=== PATIENT | female | born 2000 | race Caucasian/White ===

== ENCOUNTER 2024-06-14 17:54 | Inpatient (IN) ==
[2024-06-14] MEDS ORDERED: LIDOCAINE 1% LOCAL 20 ML VIAL INFIL PRN (19:40)
[2024-06-14] MEDS ORDERED: CALCIUM CARBONATE 500 MG CHEWABLE TAB PO PRN (19:40)
[2024-06-14] MEDS: BETAMETH SOD PHOS/ACETATE IA 6 MG/ML IM STA (19:58)
[2024-06-14] MEDS: PENICILLIN GK 6 MU in SODIUM CHLORIDE 0.9% 250 ML IV STA (20:05)
[2024-06-14] MEDS: SODIUM CHLORIDE 0.9% 500 ML IV SCH (20:15)
--- NOTE | 2024-06-14 20:24 | History & Physical Report ---
Date of Service June 14, 2024 Assessment & Plan (1) 36 weeks gestation of : (2) Active labor: (3) IUGR (intrauterine growth restriction) affecting care of mother: (4) Gestational diabetes mellitus (GDM) affecting , antepartum: Plan admit, iv, labs. fhts categ 1. active labor. pcn for gbs unknown. betamethasone, already given. desires epidural. aware of possible need for pit augmentation and/or arom and accepts. consent signed and scanned into chart. History of Present Illness Chief Complaint: labor Primary Care Provider: PATRICIA Solis 23yo at 36+wks ega presents to LD with regular contractions getting closer and stronger. Patient was seen in office earlier today for routine visit. Since that time, contractions closer and stronger and came to LD. At first ctx were irregular and cx was 4cm/80% and post per nurse (was 3/80 in office today) but then became m ore regular and more painful and recheck by nurse was 5cm with ctx moreso like q2-3. No rom. No vb. This is same fob as last which was term . Prior to that was different fob and was c/s. She wants to today. PNC c/b 1. IUGR, last u/s efw 6%, testing normal 2. GDM non compliant with bsg checks. 3. MJ use daily and vaping 4. h/o c/s x 1, successful x 1 PNL rhpos, ri, gbs unknown (done today) OBH: c/s 38wks, 38wks GYNH: nl paps, no stds Allergies Allergy/AdvReac Type Severity Reaction Status Date / Time acetaminophen [From Tylenol] AdvReac Intermediate Vomiting Verified 06/14/24 10:20 trazodone AdvReac Intermediate OVERSEDATED Verified 06/14/24 10:20 Home Medications Medication Instructions Recorded Confirmed Type Medical Marijuana 1 dose inhalation DIRECTED PRN 12/19/23 06/14/24 History NEEDED PER PT folic acid 400 mcg tablet 0.4 mg PO DAILY 12/19/23 06/14/24 History pyridoxine (vitamin B6) 100 mg 0 mg PO DAILY 12/19/23 06/14/24 History tablet (Vitamin B-6) acetone (urine) test (Ketone Urine #50 ea 02/24/24 06/14/24 Rx Test strips) blood sugar diagnostic (OneTouch #150 ea 02/24/24 06/14/24 Rx Verio test strips) blood-glucose meter (OneTouch #1 ea 02/24/24 06/14/24 Rx Verio Reflect Meter) lancets 33 gauge (OneTouch Delica #150 ea 02/24/24 06/14/24 Rx Plus Lancet) magnesium 250 mg tablet 500 mg PO DAILY 04/09/24 06/14/24 History levothyroxine 75 mcg tablet 75 mcg PO DAILY #30 tabs 05/07/24 06/14/24 Rx iron sucrose 100 mg iron/5 mL 300 mg (15 mL) IV ONCE #15 mL 05/13/24 06/14/24 Rx intravenous solution (Venofer) pediatric multivit no.17-ferrous See Rx Instructions .Route .COMPLEX 05/19/24 06/14/24 History fumarate 15 mg iron chewable tablet Patient History Medical History (Updated 06/14/24 @ 20:24 by Yasmine Caldera MD, FACOG) Anemia Depression with anxiety Chronic pain Ovarian cyst Endometriosis Varicella vaccination Asthma Surgical History S/P cystoscopy S/P laparoscopy S/P section Family History Mother Thyroid disease Son Chiari malformation type I Denies family history of Ovarian cancer Breast cancer Colorectal cancer Social History Smoking Status: Current every day smoker Tobacco Type: E-cigarettes / Vaping Second Hand Exposure: Yes; Do You Dip or Chew Tobacco: No; Hx Alcohol Use: No Hx Substance Use: Yes Prescribed Medications: Marijuana Preferred Language: Albanian Communication Ability: Effective Retail Director Required: No Beliefs That Will Affect Care: None marital status: marital status details: Hollis Smith (20) [phone] Current Living Situation: Spouse and Family Current Living Situation Comment: lives with spouse, 2 sons, 3 cats-spouse changing litter current occupational status: unemployed current occupation: homemaker Other Information That Helps Us Care for You: No Feels Safe at Home: Yes Assistive Devices: None Review of Systems as per Subjective / HPI Physical Exam Constitutional: WD/WN, vitals as above Respiratory: normal respiratory effort, lungs clear to auscultation Cardiovascular: Rate/Rhythm: regular rate and regular rhythm Gastrointestinal (Abdomen): soft gravid nt efw 5# Musculoskeletal: no edema nontender calves Neurologic: grossly normal Psychiatric: A+Ox3, euthymic affect Genitourinary: Manual OB Exam: + cervical dilation 6 cm, + cervical effacement 70% and + station -2 OB Exam Monitor Tracing: + external FHT monitor used, + external uterine monitor used (q2-3.5), + category I and + normal FHT variab ility Results & Data Vital Signs (Past 12 Hours) Vital Signs Temp Pulse Resp BP 06/14/24 19:09 97.9 F 18 06/14/24 19:05 83 127/73 06/14/24 18:09 98.1 F 102 H 20 120/83 06/14/24 18:04 98.1 F 102 H 20 120/83 Coding Level of Care Code None Diagnoses 36 weeks gestation of Z3A.36 Active labor O60.00 IUGR (intrauterine growth restriction) affecting care of mother O36.5990 Gestational diabetes mellitus (GDM) affecting , antepartum O24.419
[2024-06-14] MEDS ORDERED: SODIUM CHLORIDE 0.9% PF INJ 10 ML VIAL EPI PRN (20:36)
[2024-06-14] MEDS ORDERED: NALBUPHINE HCL INJ 10 MG/ML AMP IV PRN (20:36)
[2024-06-14] MEDS ORDERED: LIDOCAINE 2% MPF LOCAL 5 ML VIAL EPI PRN (20:36)
[2024-06-14] MEDS ORDERED: BUPIVACAINE 0.25% PF 30 ML VIAL EPI PRN (20:36)
[2024-06-14] MEDS ORDERED: NALOXONE HCL 1 MG in SODIUM CHLORIDE 0.9% 1,000 ML IV PRN (20:36)
[2024-06-14] MEDS ORDERED: ONDANSETRON INJ 2 MG/ML 2 ML VIAL IV PRN (20:36)
[2024-06-14] MEDS ORDERED: ePHEDrine sulfate 50 MG/ML AMP IV PRN (20:36)
[2024-06-14] MEDS ORDERED: NALOXONE HCL 0.4 MG/1 ML VIAL/CARP IV PRN (20:36)
[2024-06-14] MEDS ORDERED: diphenhydrAMINE 50 MG/ML VIAL IV PRN (20:36)
[2024-06-14] MEDS ORDERED: ROPIVACAINE 0.5% PF 5 MG/ML 20 ML VIAL EPI PRN (20:36)
[2024-06-14] MEDS ORDERED: fentaNYL citrate PF 100 MCG/2 ML VIAL EPI PRN (20:36)
[2024-06-14 20:37] LABS: Hematocrit (blood only) 34.2 % (37.0-47.0); Hemoglobin 11.1 g/dl (12.0-16.0); Mean Corpuscular Hemoglobin 26.8 pg (25.0-34.0); Mean Corpuscular Hgb Conc 32.5 g/dL (32.0-36.0); Mean Corpuscular Volume 82.6 fL (80.0-100.0); Platelet Count 243 K/uL (130-400); RDW Coefficient of Variation 19.9 % (11.5-14.5); RDW Standard Deviation 58.8 fL (36.4-46.3); Red Blood Count 4.14 M/uL (4.20-5.40); White Blood Count 11.62 K/ul (4.8-10.8)
--- NOTE | 2024-06-14 20:40 | Anesthesiology Consultation ---
Date of Service June 14, 2024 Assessment & Plan (1) Encounter for pre-operative examination: Chart Review Chart Review: Patient NOT seen in Pre Admission Testing and Acceptable Risk for Labor Epidural Consults Requested none History Height/Weight Height: 5 ft 2 in Weight: 55.792 kg Allergies Allergy/AdvReac Type Severity Reaction Status Date / Time acetaminophen [From Tylenol] AdvReac Intermediate Vomiting Verified 06/14/24 10:20 trazodone AdvReac Intermediate OVERSEDATED Verified 06/14/24 10:20 Medications Home Medications Medication Instructions Recorded Confirmed Last Taken Medical Marijuana 1 dose inhalation DIRECTED PRN 12/19/23 06/14/24 06/13/24 NEEDED PER PT folic acid 400 mcg tablet 0.4 mg PO DAILY 12/19/23 06/14/24 06/13/24 pyridoxine (vitamin B6) 100 mg 0 mg PO DAILY 12/19/23 06/14/24 06/13/24 tablet (Vitamin B-6) acetone (urine) test (Ketone Urine #50 ea 02/24/24 06/14/24 Unknown Test strips) blood sugar diagnostic (OneTouch #150 ea 02/24/24 06/14/24 Unknown Verio test strips) blood-glucose meter (OneTouch #1 ea 02/24/24 06/14/24 Unknown Verio Reflect Meter) lancets 33 gauge (OneTouch Delica #150 ea 02/24/24 06/14/24 Unknown Plus Lancet) magnesium 250 mg tablet 500 mg PO DAILY 04/09/24 06/14/24 06/14/24 levothyroxine 75 mcg tablet 75 mcg PO DAILY #30 tabs 05/07/24 06/14/24 06/14/24 iron sucrose 100 mg iron/5 mL 300 mg (15 mL) IV ONCE #15 mL 05/13/24 06/14/24 Unknown intravenous solution (Venofer) pediatric multivit no.17-ferrous See Rx Instructions .Route .COMPLEX 05/19/24 06/14/24 06/13/24 fumarate 15 mg iron chewable tablet Active Medications Generic Name Dose Route Start Last Admin Trade Name Freq PRN Reason Stop Dose Admin Penicillin G Potassium 6 mu/ 262 mls @ 250 mls/hr 06/14/24 19:40 06/14/24 20:05 Sodium Chloride IV 06/14/24 20:42 250 mls/hr NOW STA Administration Sodium Chloride 500 mls @ 50 mls/hr 06/14/24 20:00 06/14/24 20:15 Nss IV 06/15/24 05:59 50 mls/hr .Q10H MARGARITA Administration Past Medical History Medical History (Updated 06/14/24 @ 20:40 by Roldan Robison MD) Encounter for pre-operative examination Anemia Depression with anxiety Chronic pain Ovarian cyst Endometriosis Varicella vaccination Asthma Exercise / Class Metabolic Activity II 4-5 Yardwork/Stairs/Walk up hill Past Family History Family History Mother Thyroid disease Son Chiari malformation type I Denies family history of Ovarian cancer Breast cancer Colorectal cancer Past Surgical History Surgical History S/P cystoscopy S/P laparoscopy S/P section Past Anesthesia History No Hx of Anesthesia Complications and No Family Hx of Anesthesia Complications History of PONV No Hx of PONV and No Hx of Motion Sickness Social History Smoking Status: Current every day smoker Do You Dip or Chew Tobacco: No Hx Alcohol Use: No Hx Substance Use: Yes substance use type: marijuana Physical Exam Vital Signs Last Vital Signs Temp 36.6 C 06/14/24 19:09 Pulse 83 06/14/24 19:05 Resp 18 06/14/24 19:09 BP 127/73 06/14/24 19:05 Testing Laboratory Results 06/14/24 20:16 06/14/24 20:23 POC Glucose 83
[2024-06-14] MEDS: BUPIVACAINE 0.25% PF 30 ML VIAL EPI STA (20:53)
[2024-06-14] MEDS: fentaNYL citrate PF 100 MCG/2 ML VIAL EPI STA (20:53)
[2024-06-14] MEDS: ePHEDrine sulfate 50 MG/ML AMP ONE (20:54)
[2024-06-14] MEDS: BUPIVACAINE 0.25% PF 30 ML VIAL ONE (20:54)
[2024-06-14] MEDS: SODIUM CHLORIDE 0.9% PF INJ 10 ML VIAL EPI STA (20:54)
[2024-06-14] MEDS: fentANYL 2 MCG/ML BUPIVacaine 0.125%-NSS 100ML BAG ONE (20:54)
[2024-06-14] MEDS: SODIUM CHLORIDE 0.9% PF INJ 10 ML VIAL ONE (20:54)
[2024-06-14] MEDS: fentaNYL citrate PF 100 MCG/2 ML VIAL ONE (20:54)
[2024-06-14] MEDS: fentANYL 2 MCG/ML BUPIVacaine 0.125%-NSS 100ML BAG EPI PRN (20:55)
[2024-06-14] MEDS: LIDOCAINE 2%/EPINEPHRINE 1:200,000 20 ML PF ONE (21:17)
[2024-06-14] MEDS: LIDOCAINE 2%/EPINEPHRINE 1:200,000 20 ML PF EPI STA (21:17)
[2024-06-14] MEDS: PENICILLIN GK 3 MU in DEXTROSE 5% 100 ML IV PRN (23:43)
--- NOTE | 2024-06-15 00:53 | Labor Progress Brief Note ---
Date of Service June 15, 2024 Subjective comfortable with epidural Assessment & Plan (1) 36 weeks gestation of : (2) Active labor: (3) IUGR (intrauterine growth restriction) affecting care of mother: (4) Gestational diabetes mellitus (GDM) affecting , antepartum: (5) Desires (vaginal after ) trial: Plan will see how arom helps progress. ctx pattern regular. fhts categ 1. expectant mgmt. pcn for gbs unknown. cont to monitor bsg. Admission and Anticipated Discharge Date Admission Date: June 14, 2024 Physical Exam Constitutional: WD/WN, vitals as above Genitourinary: Manual OB Exam: + cervical dilation 7 cm, + cervical effacement 50%, + station -2 and + amniotic fluid (arom) clear OB Exam Monitor Tracing: + external FHT monitor used, + external uterine monitor used, + category I and + normal FHT variability Results & Data Vital Signs (Past 12 Hours) Vital Signs Temp Pulse Resp BP Pulse Ox 06/15/24 00:48 112 H 97 06/15/24 00:43 94 H 97 06/15/24 00:42 93 H 93 06/15/24 00:41 93 H 99/60 L 06/15/24 00:38 87 98 06/15/24 00:35 106 H 94 06/15/24 00:33 87 95 06/15/24 00:29 91 H 94 06/15/24 00:28 93 H 94 06/15/24 00:26 88 98/57 L 06/15/24 00:25 18 06/15/24 00:25 98.8 F 18 06/15/24 00:24 94 H 94 06/15/24 00:23 90 94 06/15/24 00:18 94 06/15/24 00:18 86 06/15/24 00:18 86 94 06/15/24 00:13 89 92 06/15/24 00:12 92 H 93 06/15/24 00:11 86 102/58 L 06/15/24 00:08 101 H 94 06/15/24 00:07 87 94 06/15/24 00:03 90 95 06/15/24 00:02 90 93 06/14/24 23:58 93 H 94 06/14/24 23:56 96 H 100/59 L 93 06/14/24 23:53 94 H 97 06/14/24 23:48 89 97 06/14/24 23:43 92 H 97 06/14/24 23:41 93 H 105/55 L 06/14/24 23:38 91 H 97 06/14/24 23:33 89 97 06/14/24 23:29 18 06/14/24 23:29 18 06/14/24 23:28 93 H 98 06/14/24 23:26 87 111/68 90 06/14/24 23:23 92 H 100 06/14/24 23:18 97 06/14/24 23:18 85 06/14/24 23:18 92 H 93 06/14/24 23:13 77 93 06/14/24 23:11 93 06/14/24 23:11 87 06/14/24 23:11 96 H 120/80 06/14/24 23:08 90 91 06/14/24 23:03 97 H 92 06/14/24 23:00 76 94 06/14/24 22:58 84 94 06/14/24 22:56 83 118/74 06/14/24 22:54 82 94 06/14/24 22:53 83 95 06/14/24 22:49 87 94 06/14/24 22:48 79 95 06/14/24 22:43 84 97 06/14/24 22:42 88 112/72 06/14/24 22:39 93 H 92 06/14/24 22:38 95 H 99 06/14/24 22:33 94 H 100 06/14/24 22:28 93 H 96 06/14/24 22:27 88 111/75 06/14/24 22:23 93 H 99 06/14/24 22:18 97 H 99 06/14/24 22:14 113 H 93 06/14/24 22:13 110 H 96 06/14/24 22:11 96 H 122/78 06/14/24 22:08 116 H 100 06/14/24 22:05 99 H 92 06/14/24 22:03 117 H 95 06/14/24 21:59 81 92 06/14/24 21:58 80 93 06/14/24 21:55 95 H 133/84 06/14/24 21:53 88 92 06/14/24 21:52 81 91 06/14/24 21:48 80 100 06/14/24 21:45 84 91 06/14/24 21:43 101 H 100 06/14/24 21:38 94 H 97 06/14/24 21:33 84 98 06/14/24 21:30 18 06/14/24 21:30 18 06/14/24 21:28 90 99 06/14/24 21:25 18 06/14/24 21:25 18 06/14/24 21:24 87 113/75 06/14/24 21:23 90 99 06/14/24 21:22 88 114/70 06/14/24 21:21 85 111/68 06/14/24 21:20 18 06/14/24 21:20 18 06/14/24 21:18 87 124/76 97 06/14/24 21:17 93 H 118/75 06/14/24 21:15 97 H 18 123/76 06/14/24 21:13 99 06/14/24 21:13 90 06/14/24 21:13 92 H 119/82 06/14/24 21:11 91 H 125/78 06/14/24 21:10 18 06/14/24 21:10 18 06/14/24 21:09 89 127/71 06/14/24 21:08 88 98 06/14/24 21:03 95 H 98 06/14/24 20:58 92 H 97 06/14/24 20:53 113 H 100 06/14/24 20:48 97 H 100 06/14/24 19:09 97.9 F 18 06/14/24 19:05 83 127/73 06/14/24 18:09 98.1 F 102 H 20 120/83 06/14/24 18:04 98.1 F 102 H 20 120/83 Coding Level of Care Code None Diagnoses 36 weeks gestation of Z3A.36 Active labor O60.00 IUGR (intrauterine growth restriction) affecting care of mother O36.5990 Gestational diabetes mellitus (GDM) affecting , antepartum O24.419 Desires (vaginal after ) trial O34.219
[2024-06-15] MEDS: OXYTOCIN 30 UNITS/NSS 30 UNITS/500 ML BAG IV PRN (02:08)
--- NOTE | 2024-06-15 02:17 | Delivery Summary ---
Vaginal Delivery Summary Date of Service June 15, 2024 Vaginal Delivery Summary The patient dilated to complete and pushed to deliver a viable female Apgars 8 and 9 via over intact perineum. Mouth and nose bulb suctioned at perineum. Shoulders and body delivered with ease. was vigorous and crying at . Cord clamped at 43 seconds of life and to maternal abdomen where the cord was then doubly clamped and cut. Placenta delivered spontaneously and intact, three-vessel cord. Hemostasis achieved with dilute pitocin and uterine massage and drainage of the bladder for approximately 400 cc under sterile conditions. Cervix and sulci intact. QBL 74 cc. Mother and baby stable in recovery. [facility] Vaginal Delivery Charge Delivery Type Details:
[2024-06-15] MEDS ORDERED: BENZOCAINE 20% SPRY 85 APPLN/85 GM CAN EXT PRN (04:01)
[2024-06-15] MEDS ORDERED: oxyCODONE/ACETAMINOPHEN 5mg/325mg TAB PO PRN (04:01)
[2024-06-15] MEDS ORDERED: OXYTOCIN 30 UNITS/NSS 30 UNITS/500 ML BAG IV PRN (04:01)
[2024-06-15] MEDS ORDERED: DIPHTHER/TETAN/PERTUS Vaccine (Tdap, Adol/Adult) 0.5mL IM ONE (04:01)
[2024-06-15] MEDS ORDERED: ACETAMINOPHEN 325 MG TAB PO PRN (04:01)
[2024-06-15] MEDS ORDERED: HYDROCORTISONE ACETATE 25 MG SUPP PR PRN (04:01)
[2024-06-15] MEDS: LEVOTHYROXINE SODIUM 75 MCG TABLET PO SCH (07:49)
[2024-06-15] MEDS: IBUPROFEN 600 MG TAB PO PRN (08:04)
[2024-06-15] MEDS: DOCUSATE SODIUM 100 MG CAP PO SCH (08:04)
[2024-06-15] MEDS: PRENATAL VITAMIN 1 TAB PO SCH (08:04)
[2024-06-15] MEDS: MAGNESIUM OXIDE 400 MG TAB PO SCH (08:05)
--- NOTE | 2024-06-15 09:00 | Anesthesia Procedure Note ---
Date of Service June 15, 2024 Anesthesia Post Epidural Note Vital Signs Vital Signs: Temp Pulse Resp BP Pulse Ox O2 Del Method 36.9 C 65 18 108/64 98 Room Air 06/15/24 08:00 06/15/24 08:00 06/15/24 08:00 06/15/24 08:00 06/15/24 08:00 06/15/24 08:00 Notes Mental Status: alert / awake / arousable and participated in evaluation Nausea / Vomiting: adequately controlled Pain: adequately controlled Airway Patency, RR, SpO2: stable & adequate BP & HR: stable & adequate Hydration State: stable & adequate Neuraxial Anesthesia: was administered and sensory block is resolving Anesthetic Complications: no major complications apparent Epidural: Removed without complications and With tip intact
--- NOTE | 2024-06-16 05:54 | Obstetrical Progress Note ---
Date of Service June 16, 2024 Assessment & Plan (1) (vaginal after ): Plan: 1st PPD following . Both mom and baby doing well. Baby under NNU. Will discharge her tomorrow. Admission and Anticipated Discharge Date Admission Date: June 14, 2024 Supervising Physician Co-Signing Physician Notes Resident Physician Supervision Note: I interviewed and examined the patient. Discussed with Dr. Smith and agree with findings and plan as documented in the note. Any exceptions or clarifications are listed here: PPD#1 doing well, will stay today. Requesting nicotine patch - vapes approx 7-10 hits per day with e-cigarette. Requesting lowest dose. Documented By: Renate Rushing, DO Subjective 1st PP Day following with [facility] in 22 years P3 at 36 weeks. Feels very tired this AM. Otherwise no other complains. Baby seen on bedside, admitted in NNU as per mom. Pain: Mild, intermittent Lochia: Moderate Diet: Regular Ob diet Gas: Not aware of passing, but no abdominal distension Peeing: Normal, no bladder distension Ambulation: Normally Review of Systems Review of Systems: No SOB, chest pain, leg pain No dizziness, headache, palpitation No Blurring of vision , fever Physical Exam Physical Exam: General: Alert and oriented. No acute distress. CVS: S1 S2+ No murmurs, regular rhythm. Respiratory: CTA bilaterally. No rhonchi, wheezes, or crackles. No increased work of breathing. Abdomen: Bowel sound +. Soft, nontender Uterus: Fundus firm and palpable few cm below the umbilicus. Lower extremities: No LE edema. No deep calf pain. Results & Data Vital Signs (Past 12 Hours) Vital Signs Temp Pulse Resp BP Pulse Ox O2 Del Method 06/15/24 23:30 36.8 C 70 20 105/66 99 Room Air 06/15/24 19:45 36.9 C 81 20 111/73 98 Room Air Resident Activity Tracking Resident Involvement: Resident Care Provided Care Provided: OB Delivery
[2024-06-16] MEDS: NICOTINE 14 MG/24 HR PATCH TD SCH (09:45)
[2024-06-16] MEDS: bisacodyL 5 MG TABEC PO SCH (20:35)
[2024-06-16 21:15] VITALS: TEMP 98.2
[2024-06-17 02:04] VITALS: O2SAT 98
--- NOTE | 2024-06-17 07:08 | Obstetrical Progress Note ---
Date of Service June 17, 2024 Assessment & Plan (1) (vaginal after ): Plan: 2nd PPD following . Both mom and baby doing well. Discharge today per protocol. Admission and Anticipated Discharge Date Admission Date: June 14, 2024 Supervising Physician Co-Signing Physician Notes Resident Physician Supervision Note: I interviewed and examined the patient. Discussed with Dr. Smith and agree with findings and plan as documented in the note. Any exceptions or clarifications are listed here: [None] Documented By: Lesly Green MD, FACOG Subjective 2nd PP Day following with [facility] in 22 years P3 at 36 weeks. no active complains. Baby doing fine at bedside. Pain: Mild, intermittent Lochia: Moderate Diet: Regular Ob diet Gas: Not aware of passing, but no abdominal distension Peeing: Normal, no bladder distension Ambulation: Normally Review of Systems Review of Systems: No SOB, chest pain, leg pain No dizziness, headache, palpitation No Blurring of vision , fever Physical Exam Physical Exam: General: Alert and oriented. No acute distress. CVS: S1 S2+ No murmurs, regular rhythm. Respiratory: CTA bilaterally. No rhonchi, wheezes, or crackles. No increased work of breathing. Abdomen: Bowel sound +. Soft, nontender Uterus: Fundus firm and palpable few cm below the umbilicus. Lower extremities: No LE edema. No deep calf pain. Results & Data Vital Signs (Past 12 Hours) Vital Signs Temp Pulse Resp BP Pulse Ox O2 Del Method 06/17/24 00:05 36.8 C 79 20 124/80 98 Room Air 06/16/24 19:30 Room Air 06/16/24 19:30 36.8 C 79 18 124/80 99 Room Air Resident Activity Tracking Resident Involvement: Resident Care Provided Care Provided: OB Delivery
[2024-06-17 07:59] VITALS: BP 115/73; PULSE 83; RESP 18
== END 2024-06-17 12:00 | disposition home or self-care (01) | DRG 807 ==
LOC: OPB 17:54 → 4S1 17:55 → 4E2 06-15 05:32